=== PATIENT | female | born 1965 | race Caucasian/White ===

== ENCOUNTER 2020-04-16 17:49 | Emergency (ER) | payer OTHER ==
[~2020-04-16 17:49] MED LIST: CYCLOBENZAPRINE10 MG PO; PERCOCET 5-3251 EACH PO
[2020-04-16 18:31] LABS: BASOPHIL 0.8 % (0-2); EOSINOPHIL 2.1 % (0-5); LYMPHOCYTE 20.1 % (15-48); MCH 29.3 pg (25.0-31.0); MCHC 33.3 g/dL (32.0-36.0); MCV 87.9 fL (78.0-100.0); MONOCYTE 8.7 % (0-12); MPV 10.9 fL (6.0-9.5); NEUTROPHIL 68.1 % (41-80); RBC 5.12 M/uL (4.20-5.40); RDW 12.4 % (11.5-14.0); WBC 5.2 K/uL (4.0-10.5)
[2020-04-16 18:33] LABS: PLT 105 K/uL (150-400)
[2020-04-16 18:42] LABS: BILIRUBIN NEGATIVE (NEGATIVE); BLOOD 1+ Ery/uL (NEGATIVE); CLARITY CLEAR (CLEAR); COLOR YELLOW (YELLOW); GLUCOSE (U) 3+ mg/dL (NORMAL); LEUKOCYTES NEGATIVE Leu/uL (NEGATIVE); NITRITE NEGATIVE (NEGATIVE); PROTEIN 1+ mg/dL (NEGATIVE); SPECIFIC GRAVITY 1.015 (1.001-1.030); UROBILINOGEN 0.2 mg/dL (0.2-1.0); pH 6.5 (5.0-9.0)
[2020-04-16 18:53] LABS: LACTIC ACID 2.3 mmol/L (0.4-1.9)
[2020-04-16 18:56] LABS: BASOPHIL(M) 1 % (0-2); EOSINOPHIL(M) 3 % (0-5); LYMPHOCYTE(M) 27 % (15-48); MONOCYTE(M) 6 % (0-12); NEUTROPHILS(M) 63 % (41-80); PLATELET ESTIMATE DECREASED; PLATELET MORPHOLOGY NORMAL; TOTAL CELL COUNT 100
[2020-04-16 18:58] LABS: BACTERIA TRACE
[2020-04-16 19:11] LABS: ALBUMIN 3.4 g/dL (3.4-5.0); BILIRUBIN - TOTAL 0.4 mg/dL (0.2-1.0); CREATININE 0.87 mg/dL (0.51-0.95); GLOBULIN (CALCULATION) 4.9 g/dL; POTASSIUM 4.1 mmol/L (3.5-5.1); TOTAL PROTEIN 8.3 g/dL (6.4-8.2)
[2020-04-16] MEDS ORDERED: OZEMPIC0.25 MG/0. SC (20:58)
== END 2020-04-16 21:13 | disposition home or self-care (01) ==
LOC: FER 17:49
PROVIDERS: Emergency Medicine
DX: E11.65 Type 2 diabetes mellitus with hyperglycemia (principal); E87.2 Acidosis; I10 Essential (primary) hypertension; E11.9 Type 2 diabetes mellitus without complications; E66.3 Overweight; Z87.39 Personal history of other diseases of the musculoskeletal system and connective tissue; Z87.891 Personal history of nicotine dependence; Z91.040 Latex allergy status; Z79.4 Long term (current) use of insulin; Z79.899 Other long term (current) drug therapy
CPT/HCPCS: 36415; 70450; 71045; 80053; 81001; 83605; 87040; J1885; J2270; J2550; J7030

== ENCOUNTER → 2021-10-02 | Day surgery (SDC) | payer OTHER ==
[~2021-10-02] VITALS: Ht 152.4 cm; Wt 72.6 kg
[~2021-10-02] MED LIST changes: +8 HOUR650 MG PO; +FEXOFENADINE H180 MG PO; +GABAPENTIN600 MG PO; +LANTUS100 UNIT/1 SC; +METFORMIN HCL1000 M2 PO; +OZEMPIC0.25 MG/0. SC; +TIZANIDINE HCL4 MG PO; +ZESTRIL5 MG PO
[2021-10-02 07:47] LABS: BASOPHIL 1.1 % (0-2); EOSINOPHIL 2.8 % (0-5); HGB 13.6 g/dl (12.5-16.0); LYMPHOCYTE 21.7 % (15-48); MCH 29.3 pg (25.0-31.0); MCV 86.2 fL (78.0-100.0); MONOCYTE 9.9 % (0-12); MPV 10.5 fL (6.0-9.5); NEUTROPHIL 64.1 % (41-80); NRBC 0; PLT 98 K/uL (150-400); RBC 4.64 M/uL (4.20-5.40); RDW 12.5 % (11.5-14.0); WBC 5.7 K/uL (4.0-10.5)
[2021-10-02 08:01] LABS: BUN/CREAT RATIO (CALC) 30.7 RATIO; CREATININE 0.75 mg/dL (0.51-0.95); POTASSIUM 3.8 mmol/L (3.5-5.1)
== END | disposition home or self-care (01) ==
LOC: FAS 06:36
PROVIDERS: Oral & Maxillofacial Surgery
DX: K01.1 Impacted teeth (principal); K04.7 Periapical abscess without sinus; E11.65 Type 2 diabetes mellitus with hyperglycemia; I10 Essential (primary) hypertension; Z91.040 Latex allergy status
CPT/HCPCS: 36415; 71045; 80048; 85025; 93005; J1100; J1885; J2250; J2370; J2405; J2704; J3010; J7120